=== PATIENT | female | born 1990 | race Caucasian/White ===

== ENCOUNTER 2018-09-25 06:02 | Inpatient (IN) | payer OTHER ==
[~2018-09-25] VITALS: Ht 152.4 cm; Wt 2.7 kg
[2018-09-25] MEDS ORDERED: PRENATAL FORMU1 EAC1 PO (07:16)
== END 2018-09-28 17:35 | disposition home or self-care (01) | DRG 788 ==
LOC: OB/GYN 06:02 → LDR 06:02 → O/R 15:25 → OB/GYN 16:00
PROVIDERS: Obstetrics & Gynecology
PROC: 4A1HXCZ Monitoring of Products of Conception, Cardiac Rate, External Approach (ICD-10-PCS; 2018-09-25)
PROC: 10D00Z1 Extraction of Products of Conception, Low, Open Approach (ICD-10-PCS; principal; 2018-09-25 15:30)
DX: O34.211 Maternal care for low transverse scar from previous cesarean delivery (principal); O75.82 Onset (spontaneous) of labor after 37 completed weeks of gestation but before 39 completed weeks gestation, with delivery by (planned) cesarean section; Z3A.40 40 weeks gestation of pregnancy; Z37.0 Single live birth